=== PATIENT | male | born 1950 | race Caucasian/White ===

== ENCOUNTER 2016-05-16 20:36 | Emergency (ER) | payer MEDICARE, MEDICAID ==
[2016-05-16] MEDS ORDERED: 0.9 % SODIUM CHLORIDE 1000ML 1,000 ML IV SCH ×2 (21:00→22:45)
--- NOTE | 2016-05-16 21:08 | Emergency Department Record ---
History of Present Illness - General Chief Complaint: Dizziness Stated Complaint: DIZZY Time Seen by Provider: 05/16/16 20:55 Source: Patient Mode of Arrival: Ambulatory Limitations: No limitations - History of Present Illness Initial Comments: 65 yo male presents to ED with a CC of of generalized weakness, chills, dizziness, and non-productive cough symptoms. Patient denies fever, reports mild nausea or vomiting. Patient denies focal weakness on examination. Patient denies health problems at his baseline other than GERD and HTN. MD Complaint: Dizziness, Lightheadedness, Other (weak all over) Onset/Timin -: Days(s) Timing: Gradual onset Description: Difficulty walking History of Same: No History of Trauma: No Improves With: Nothing Worsens With: Nothing Associated Symptoms: Cough, Fever/chills, Weakness - Ines Coma Scale Eye Response: (4) Open spontaneously Motor Response: (6) Obeys commands Verbal Response: (5) Oriented [place] Total: 15 - Related Data Home Medications Medication Instructions Recorded Confirmed Last Taken Aspirin [Aspirin EC] 81 mg PO ASDIR 05/06/14 05/16/16 09/08/15 Multivitamin [Multi-Vitamin Daily] 1 tab PO DAILY 05/06/14 05/16/16 09/08/15 Ranitidine HCl [Zantac] 150 mg PO BID 05/06/14 05/16/16 09/08/15 Tamsulosin HCl [Tamsulosin HCl] 0.8 mg PO DAILY 05/06/14 05/16/16 09/08/15 Meloxicam [Meloxicam] 7.5 mg PO DAILY 09/05/15 05/16/16 09/08/15 Allergies Allergy/AdvReac Type Severity Reaction Status Date / Time morphine AdvReac Severe VOMITING Verified 09/08/15 20:47 Travel Screening - Travel/Exposure Within Last 30 Days Have you traveled within the last 30 days?: No Review of Systems Constitutional: Reports: Chills, Malaise, Weakness. Denies: Night sweats Eyes: Denies: Eye discharge, Eye pain ENT: Denies: Congestion, Ear pain, Epistaxis Respiratory: Reports: Cough. Denies: Dyspnea Cardiovascular: Denies: Chest pain, Dyspnea on exertion, Palpitations, Syncope Endocrine: Reports: Fatigue. Denies: Heat or cold intolerance, Polydipsia, Polyuria Gastrointestinal: Reports: Nausea. Denies: Abdominal pain, Constipation, Vomiting Genitourinary: Denies: Incontinence, Retention Musculoskeletal: Denies: Arthralgia, Back pain, Gout, Joint swelling Skin: Denies: Bruising, Change in color Neurological: Denies: Abnormal gait, Confusion, Headache, Seizure Psychiatric: Denies: Anxiety Hematological/Lymphatic: Denies: Anemia, Blood Clots Past Medical History - SOCIAL HISTORY Smoking Status: Former smoker Alcohol Use: None Drug Use: None - RESPIRATORY Hx Respiratory Disorders: Yes Hx COPD: Yes Hx Dyspnea: Yes - CARDIOVASCULAR Hx Cardio Disorders: Yes Hx Hypertension: Yes - NEURO Hx Neuro Disorders: No Comment:: pt exhibits some neurological deficits - GI Hx GI Disorders: Yes Hx Ulcer: Yes - Hx Genitourinary Disorders: Yes Hx Bladder Problem: Yes Hx Prostate Problems: Yes Comment:: takes flomax - ENDOCRINE Hx Endocrine Disorders: No Hx Diabetes: No Hx Thyroid Disease: No - MUSCULOSKELETAL Hx Musculoskeletal Disorders: No Comment:: rt torn rotator cuff, current cyst on spine - PSYCH Hx Psych Problems: No - HEMATOLOGY/ONCOLOGY Hx Hematology/Oncology Disorders: No Family Medical History Any Significant Family History?: Yes Hx Cancer: Father, Mother Hx Diabetes: Mother Physical Exam - General General Appearance: Alert, Oriented x3, Cooperative, Mild distress Limitations: No limitations - Head Head exam: Atraumatic, Normocephalic, Normal inspection Head exam detail: negative: Abrasion, Contusion, Judge's sign, General tenderness, Hematoma, Laceration - Eye Eye exam: Other (Glass eye left). negative: Conjunctival injection, Periorbital swelling, Periorbital tenderness, Scleral icterus - ENT Ear exam: negative: Auricular hematoma, Auricular trauma Nasal Exam: negative: Active bleeding, Discharge, Dried blood, Foreign body Mouth exam: negative: Drooling, Laceration, Muffled voice, Tongue elevation - Neck Neck exam: Normal inspection. negative: Meningismus, Tenderness - Respiratory Respiratory exam: Normal lung sounds bilaterally. negative: Rales, Respiratory distress, Rhonchi, Stridor - Cardiovascular Cardiovascular Exam: Regular rate, Normal rhythm, Normal heart sounds - GI/Abdominal GI/Abdominal exam: Soft. negative: Rebound, Rigid, Tenderness - Rectal Rectal exam: Deferred - exam: Deferred - Extremities Extremities exam: Normal inspection. negative: Calf tenderness, Pedal edema, Tenderness - Back Back exam: Denies: CVA tenderness (R), CVA tenderness (L) - Neurological Neurological exam: Alert, Normal gait, Oriented X3 - Psychiatric Psychiatric exam: Normal affect, Normal mood - Skin Skin exam: Normal color. negative: Abrasion Type of lesion: negative: abrasion Course Vital Signs 05/16/16 20:45 Temperature 98.4 F Pulse Rate [ 71 Pulse Ox Probe] Respiratory 20 Rate Blood Pressure 141/77 [Left Arm] Pulse Ox 97 - Reevaluation(s) Reevaluation #1: 05/16/16 21:13 EKG: NSR 66 Normal axis, normal intervals T wave inversion I, AVL, ST changes V4-V6 Unchanged from 05/06/16 Reevaluation #2: 05/16/16 21:36 Labs reviewed, Hgb 12.8, HCT 38, labs are otherwise grossly unremarkable for an acute process. Reevaluation #3: 05/16/16 21:58 CXR: No acute process. Reevaluation #4: 05/16/16 22:28 UA reviewed and is grossly unremarkable for an acute process. Reevaluation #5: 05/16/16 22:31 Patient reassessed, reports he is feeling better following IVFs, will infuse 2nd liter and reassess. 23:17 Patient reassessed, reports that he is feeling much better and appears stable for discharge at this time. 05/16/16 23:17 Medical Decision Making - Lab Data Result diagrams: 05/16/16 21:08 05/16/16 21:08 Disposition Disposition: Discharge Clinical Impression: Dehydration Disposition: Home, Self-Care Condition: (2) Stable Instructions: Dehydration (ED) Additional Instructions: Return to ED if your symptoms worsen or if you have any concerns. Drink plenty of fluids/rest. Follow-up with your family doctor in 3-5 days as directed. Forms: Patient Portal Access Time of Disposition: 23:00
[2016-05-16 21:18] LABS: HEMATOCRIT 38.8 % (42.0-52.0); HEMOGLOBIN 12.8 gm/dl (14.0-18.0); MEAN PLATELET VOLUME 10.4 fl (7.4-10.4); PLATELET COUNT 214 K/uL (130-400); RED BLOOD COUNT 4.85 M/uL (4.40-5.70); RED CELL DISTRIBUTION WIDTH 13.6 % (11.5-14.5); WHITE BLOOD COUNT W/O DIFF 6.5 K/uL (4.2-12.2)
[2016-05-16 21:21] LABS: MEAN CORPUSCULAR HEMOGLOBIN 26.3 pg (27-33)
[2016-05-16 21:30] LABS: ALB/GLOB RATIO 1.5 (1.1-1.8); ALBUMIN 4.7 gm/dL (3.5-5.0); ALKALINE PHOSPHATASE 56 U/L (38-126); ALT/SGPT 50 U/L (21-72); ANION GAP 9.1 (7-16); AST/SGOT 30 U/L (17-59); BILIRUBIN,TOTAL 0.81 mg/dL (0.2-1.3); BLOOD UREA NITROGEN 15 mg/dL (9-20); CARBON DIOXIDE 24.9 mmol/L (22-30); CREATININE 0.8 mg/dL (0.66-1.25); EST GLOMERULAR FILTRATION RATE > 60 ml/min; GLUCOSE,RANDOM 129 mg/dL (70-110); TOTAL PROTEIN 7.9 gm/dL (6.3-8.2)
[2016-05-16 21:31] LABS: INFLUENZA A NEGATIVE (NEGATIVE); INFLUENZA B NEGATIVE (NEGATIVE)
[2016-05-16 22:19] LABS: URINE APPEARANCE CLEAR; URINE BILIRUBIN NEGATIVE (NEGATIVE); URINE BLOOD SMALL (NEGATIVE); URINE COLOR YELLOW; URINE GLUCOSE (UA) NEGATIVE (NEGATIVE); URINE KETONE NEGATIVE (NEGATIVE); URINE LEUKOCYTE ESTERASE NEGATIVE (NEGATIVE); URINE NITRITE NEGATIVE (NEGATIVE); URINE PROTEIN NEGATIVE (NEGATIVE); URINE UROBILINOGEN 0.2 E.U./dL (0.20 - 1.00)
[2016-05-16 22:21] LABS: URINE BACTERIA NONE SEEN; URINE EPITHELIAL CELLS 0 - 2 (FEW); URINE RBC 0 - 2 (NONE SEEN); URINE WBC 0 - 2 (0-2/hpf)
--- NOTE | 2016-05-20 11:24 | RADIOLOGY REPORT ---
EXAM: CHEST, TWO VIEWS HISTORY: PATIENT STATES THAT HE HAS BEEN FEELING WEAK. COUGH. NAUSEA. CHILLS. TECHNIQUE: Two views of the chest were provided along with the comparison study dated 05/06/14. FINDINGS: The cardiac silhouette is magnified. The rocío appear unremarkable. There is no radiographic evidence of a focal infiltrate, pleural effusion, or pneumothorax. Chronic interstitial changes are identified bilaterally. IMPRESSION: STABLE RADIOGRAPHIC APPEARANCE OF THE CHEST WITH RESPECT TO THE PRIOR EXAMINATION. JOB NUMBER: [id number] [facility]
== END 2016-05-16 23:15 | disposition home or self-care (01) ==
LOC: ER 20:36
DX: E86.0 Dehydration (principal); R42 Dizziness and giddiness; R26.2 Difficulty in walking, not elsewhere classified; I10 Essential (primary) hypertension; Z87.891 Personal history of nicotine dependence
CPT/HCPCS: 71020; 80053; 81001; 85027; 86308; 87400; 93005; 93010; 99284; J7030

== ENCOUNTER 2016-07-03 19:29 | Emergency (ER) | payer MEDICARE, MEDICAID ==
[2016-07-03] MEDS ORDERED: 0.9 % SODIUM CHLORIDE 1,000 ML BAG IV ONE (19:55)
--- NOTE | 2016-07-03 19:59 | Emergency Department Record ---
History of Present Illness - General Chief complaint: Nausea, Vomiting, Diarrhea Stated complaint: DIARRHEA Time Seen by Provider: 07/03/16 19:45 Source: Patient Mode of Arrival: Ambulatory Limitations: No limitations - History of Present Illness Initial comments: pt has had 1 bout of diarrhea every other night for the last week. he is having none tonight. he has nausea and cramping with it. it happens right after he eats no matter what he eats. MD complaint: Abdominal pain, Diarrhea, Nausea Onset/Timin -: Week(s) Associated Abdominal Pain: Yes Location: LLQ, RLQ Radiation: None Severity: Mild Quality: Cramping Consistency: Intermittent Improves with: Bowel movement Worsens with: Eating Associated Symptoms: Denies other symptoms - Related Data Home Medications Medication Instructions Recorded Confirmed Last Taken Aspirin [Aspirin EC] 81 mg PO ASDIR 05/06/14 07/03/16 09/08/15 Multivitamin [Multi-Vitamin Daily] 1 tab PO DAILY 05/06/14 07/03/16 09/08/15 Ranitidine HCl [Zantac] 150 mg PO BID 05/06/14 07/03/16 07/03/16 Tamsulosin HCl [Tamsulosin HCl] 0.4 mg PO DAILY 05/06/14 07/03/16 09/08/15 Acetaminophen [Tylenol Extra 500 mg PO BID 07/03/16 07/03/16 07/03/16 Strength] Gemfibrozil [Lopid] 600 mg PO DAILY 07/03/16 07/03/16 07/03/16 [place]win-3 Fatty Acids/Fish Oil [Fish 1 each PO DAILY 07/03/16 07/03/16 07/03/16 Oil 1,000 mg Capsule] Previous Rx's Medication Instructions Recorded Loperamide HCl [Immodium] 2 mg PO Q4H #10 capsule 07/03/16 Allergies Allergy/AdvReac Type Severity Reaction Status Date / Time morphine AdvReac Severe VOMITING Verified 09/08/15 20:47 Travel Screening - Travel/Exposure Within Last 30 Days Have you traveled within the last 30 days?: No Review of Systems Reviewed: No additional complaints except as noted below Constitutional: Reports: As per HPI. Denies: Chills, Fever, Malaise, Night sweats, Weakness, Weight change Eyes: Reports: As per HPI. Denies: Eye discharge, Eye pain, Photophobia, Vision change ENT: Reports: As per HPI. Denies: Congestion, Dental pain, Ear pain, Epistaxis , Hearing loss, Throat pain Respiratory: Reports: As per HPI. Denies: Cough, Dyspnea, Hemoptysis, Stridor, Wheezes Cardiovascular: Reports: As per HPI. Denies: Arrhythmia, Chest pain, Dyspnea on exertion, Edema, Murmurs, Orthopnea, Palpitations, Paroxysmal nocturnal dyspnea, Rheumatic Fever, Syncope Endocrine: Reports: As per HPI. Denies: Fatigue, Heat or cold intolerance, Polydipsia, Polyuria Gastrointestinal: Reports: As per HPI. Denies: Abdominal pain, Constipation, Diarrhea, Hematemesis, Hematochezia, Melena, Nausea, Vomiting Genitourinary: Reports: As per HPI. Denies: Dysuria, Frequency, Hematuria, Incontinence, Retention, Testicular pain, Testicular mass, Urgency Musculoskeletal: Reports: As per HPI. Denies: Arthralgia, Back pain, Gout, Joint swelling, Myalgia, Neck pain Skin: Reports: As per HPI. Denies: Bruising, Change in color, Change in hair/ nails, Lesions, Pruritus, Rash Neurological: Reports: As per HPI. Denies: Abnormal gait, Confusion, Headache, Numbness, Paresthesias, Seizure, Tingling, Tremors, Vertigo, Weakness Psychiatric: Reports: As per HPI. Denies: Anxiety, Auditory hallucinations, Depression, Homicidal thoughts, Suicidal thoughts, Visual hallucinations Hematological/Lymphatic: Reports: As per HPI. Denies: Anemia, Blood Clots, Easy bleeding, Easy bruising, Swollen glands Past Medical History - SOCIAL HISTORY Smoking Status: Former smoker Alcohol Use: None Drug Use: None - RESPIRATORY Hx Respiratory Disorders: Yes Hx COPD: Yes Hx Dyspnea: Yes - CARDIOVASCULAR Hx Cardio Disorders: Yes Hx Hypertension: Yes - NEURO Hx Neuro Disorders: No Comment:: pt exhibits some neurological deficits - GI Hx GI Disorders: Yes Hx Ulcer: Yes - Hx Genitourinary Disorders: Yes Hx Bladder Problem: Yes Hx Prostate Problems: Yes Comment:: takes flomax - ENDOCRINE Hx Endocrine Disorders: No Hx Diabetes: No Hx Thyroid Disease: No - MUSCULOSKELETAL Hx Musculoskeletal Disorders: No Comment:: rt torn rotator cuff, current cyst on spine - PSYCH Hx Psych Problems: No - HEMATOLOGY/ONCOLOGY Hx Hematology/Oncology Disorders: No Family Medical History Any Significant Family History?: Yes Hx Cancer: Father, Mother Hx Diabetes: Mother Physical Exam - General General Appearance: Alert, Oriented x3, Cooperative, No acute distress - Head Head exam: Normal inspection - Eye Eye exam: Normal appearance, PERRL, EOMI Pupils: Normal accommodation - ENT ENT exam: Normal exam, Mucous membranes moist, Normal external ear exam, Normal orophraynx Ear exam: Normal external inspection. negative: External canal tenderness Nasal Exam: Normal inspection. negative: Discharge, Sinus tenderness Mouth exam: Normal external inspection, Tongue normal Teeth exam: Normal inspection. negative: Dental caries Throat exam: Normal inspection. negative: Tonsillar erythema, Tonsillar exudate - Neck Neck exam: Normal inspection, Full ROM. negative: Tenderness - Respiratory Respiratory exam: Normal lung sounds bilaterally. negative: Respiratory distress - Cardiovascular Cardiovascular Exam: Regular rate, Normal rhythm, Normal heart sounds - GI/Abdominal GI/Abdominal exam: Soft, Normal bowel sounds. negative: Tenderness - Rectal Rectal exam: Deferred - exam: Deferred - Extremities Extremities exam: Normal inspection, Full ROM, Normal capillary refill. negative: Tenderness - Back Back exam: Reports: Normal inspection, Full ROM. Denies: Muscle spasm, Rash noted, Tenderness - Neurological Neurological exam: Alert, CN II-XII intact, Normal gait, Oriented X3 - Psychiatric Psychiatric exam: Normal affect, Normal mood - Skin Skin exam: Dry, Intact, Normal color, Warm Course Vital Signs 07/03/16 19:36 Temperature 97.7 F Pulse Rate 66 Respiratory 22 Rate Blood Pressure 159/82 Pulse Ox 96 Medical Decision Making - Lab Data Result diagrams: 07/03/16 20:10 07/03/16 20:10 Disposition Disposition: Discharge Clinical Impression: Diarrhea Qualifiers: Diarrhea type: unspecified type Qualified Code(s): R19.7 - Diarrhea, unspecified Disposition: Home, Self-Care Condition: (1) Good Instructions: Acute Diarrhea (ED) Additional Instructions: follow up with family doctor. return sooner if worse. push fluids Prescriptions: Loperamide HCl [Immodium] 2 mg PO Q4H #10 capsule Forms: Patient Portal Access
[2016-07-03 20:16] LABS: BASO % 1.1 % (0-6); EOS % 4.9 % (0-6); HEMATOCRIT 38.4 % (42.0-52.0); HEMOGLOBIN 12.6 gm/dl (14.0-18.0); LYMPH % 25.3 % (16-45); MEAN CELL VOLUME 79.8 fl (81-97); MEAN CORPUSCULAR HGB CONC 32.8 g/dl (32-36); MEAN PLATELET VOLUME 10.6 fl (7.4-10.4); MONO % 8.7 % (0-9); PLATELET COUNT 256 K/uL (130-400); RED BLOOD COUNT 4.81 M/uL (4.40-5.70); RED CELL DISTRIBUTION WIDTH 13.5 % (11.5-14.5); WHITE BLOOD COUNT W/O DIFF 6.1 K/uL (4.2-12.2)
[2016-07-03 20:17] LABS: MEAN CORPUSCULAR HEMOGLOBIN 26.1 pg (27-33)
[2016-07-03 20:30] LABS: ALB/GLOB RATIO 1.6 (1.1-1.8); ALBUMIN 4.7 gm/dL (3.5-5.0); ALKALINE PHOSPHATASE 58 U/L (38-126); ALT/SGPT 42 U/L (21-72); ANION GAP 10.5 (7-16); AST/SGOT 28 U/L (17-59); BILIRUBIN,TOTAL 0.67 mg/dL (0.2-1.3); BLOOD UREA NITROGEN 20 mg/dL (9-20); CARBON DIOXIDE 24.5 mmol/L (22-30); CREATININE 0.7 mg/dL (0.66-1.25); EST GLOMERULAR FILTRATION RATE > 60 ml/min; GLUCOSE,RANDOM 110 mg/dL (70-110); LIPASE 56 U/L (23-300); TOTAL PROTEIN 7.6 gm/dL (6.3-8.2)
[2016-07-03 20:52] LABS: URINE APPEARANCE CLEAR; URINE BILIRUBIN NEGATIVE (NEGATIVE); URINE BLOOD SMALL (NEGATIVE); URINE COLOR YELLOW; URINE GLUCOSE (UA) NEGATIVE (NEGATIVE); URINE KETONE NEGATIVE (NEGATIVE); URINE LEUKOCYTE ESTERASE TRACE (NEGATIVE); URINE NITRITE NEGATIVE (NEGATIVE); URINE PROTEIN NEGATIVE (NEGATIVE); URINE UROBILINOGEN 0.2 E.U./dL (0.20 - 1.00)
[2016-07-03 21:04] LABS: URINE BACTERIA FEW; URINE EPITHELIAL CELLS 0 - 2 (FEW); URINE MUCUS LIGHT
== END 2016-07-03 21:46 | disposition home or self-care (01) ==
LOC: ER 19:29
DX: R11.2 Nausea with vomiting, unspecified (principal); R19.7 Diarrhea, unspecified; R10.84 Generalized abdominal pain
CPT/HCPCS: 80053; 81001; 83690; 85025; 99284; J7030

== ENCOUNTER 2017-06-16 19:28 | Emergency (ER) | payer MEDICARE, MEDICAID ==
--- NOTE | 2017-06-16 21:34 | Emergency Department Record ---
History of Present Illness - General Chief complaint: Extremity Problem Stated complaint: RT LOWER LEG PAIN Time Seen by Provider: 06/16/17 20:02 Source: Patient Mode of Arrival: Ambulatory Limitations: No limitations - History of Present Illness Initial comments: pts knee gave out today. he wears a brace Complaint: Extremity pain, Joint pain Onset/Timin -: Days(s) Location: Right, Knee History of Same: Yes Radiation: None Improves with: Immobilization Worsens with: Walking, Weight bearing Associated Symptoms: Denies other symptoms - Related Data Previous Rx's Medication Instructions Recorded Loperamide HCl [Immodium] 2 mg PO Q4H #10 capsule 07/03/16 Allergies Allergy/AdvReac Type Severity Reaction Status Date / Time morphine AdvReac Severe VOMITING Verified 09/08/15 20:47 Travel Screening - Travel/Exposure Within Last 30 Days Have you traveled within the last 30 days?: No - Travel Symptoms Symptom Screening: None Review of Systems Reviewed: No additional complaints except as noted below Constitutional: Reports: As per HPI. Denies: Chills, Fever, Malaise, Night sweats, Weakness, Weight change Eyes: Reports: As per HPI. Denies: Eye discharge, Eye pain, Photophobia, Vision change ENT: Reports: As per HPI. Denies: Congestion, Dental pain, Ear pain, Epistaxis , Hearing loss, Throat pain Respiratory: Reports: As per HPI. Denies: Cough, Dyspnea, Hemoptysis, Stridor, Wheezes Cardiovascular: Reports: As per HPI. Denies: Arrhythmia, Chest pain, Dyspnea on exertion, Edema, Murmurs, Orthopnea, Palpitations, Paroxysmal nocturnal dyspnea, Rheumatic Fever, Syncope Endocrine: Reports: As per HPI. Denies: Fatigue, Heat or cold intolerance, Polydipsia, Polyuria Gastrointestinal: Reports: As per HPI. Denies: Abdominal pain, Constipation, Diarrhea, Hematemesis, Hematochezia, Melena, Nausea, Vomiting Genitourinary: Reports: As per HPI. Denies: Dysuria, Frequency, Hematuria, Incontinence, Retention, Testicular pain, Testicular mass, Urgency Musculoskeletal: Reports: As per HPI. Denies: Arthralgia, Back pain, Gout, Joint swelling, Myalgia, Neck pain Skin: Reports: As per HPI. Denies: Bruising, Change in color, Change in hair/ nails, Lesions, Pruritus, Rash Neurological: Reports: As per HPI. Denies: Abnormal gait, Confusion, Headache, Numbness, Paresthesias, Seizure, Tingling, Tremors, Vertigo, Weakness Psychiatric: Reports: As per HPI. Denies: Anxiety, Auditory hallucinations, Depression, Homicidal thoughts, Suicidal thoughts, Visual hallucinations Hematological/Lymphatic: Reports: As per HPI. Denies: Anemia, Blood Clots, Easy bleeding, Easy bruising, Swollen glands Past Medical History - SOCIAL HISTORY Smoking Status: Former smoker Alcohol Use: None Drug Use: None - RESPIRATORY Hx Respiratory Disorders: Yes Hx COPD: Yes Hx Dyspnea: Yes - CARDIOVASCULAR Hx Cardio Disorders: Yes Hx Hypertension: Yes - NEURO Hx Neuro Disorders: No Comment:: pt exhibits some neurological deficits - GI Hx GI Disorders: Yes Hx Ulcer: Yes - Hx Genitourinary Disorders: Yes Hx Bladder Problem: Yes Hx Prostate Problems: Yes Comment:: takes flomax - ENDOCRINE Hx Endocrine Disorders: No Hx Diabetes: No Hx Thyroid Disease: No - MUSCULOSKELETAL Hx Musculoskeletal Disorders: No Comment:: rt torn rotator cuff, current cyst on spine - PSYCH Hx Psych Problems: No - HEMATOLOGY/ONCOLOGY Hx Hematology/Oncology Disorders: No Family Medical History Any Significant Family History?: Yes Hx Cancer: Father, Mother Hx Diabetes: Mother Physical Exam - General General Appearance: Alert, Oriented x3, Cooperative, Mild distress - Head Head exam: Normal inspection - Eye Eye exam: Normal appearance, PERRL, EOMI Pupils: Normal accommodation - ENT ENT exam: Normal exam, Mucous membranes moist, Normal external ear exam, Normal orophraynx Ear exam: Normal external inspection. negative: External canal tenderness Nasal Exam: Normal inspection. negative: Discharge, Sinus tenderness Mouth exam: Normal external inspection, Tongue normal Teeth exam: Normal inspection. negative: Dental caries Throat exam: Normal inspection. negative: Tonsillar erythema, Tonsillar exudate - Neck Neck exam: Normal inspection, Full ROM. negative: Tenderness - Respiratory Respiratory exam: Normal lung sounds bilaterally. negative: Respiratory distress - Cardiovascular Cardiovascular Exam: Regular rate, Normal rhythm, Normal heart sounds - GI/Abdominal GI/Abdominal exam: Soft, Normal bowel sounds. negative: Tenderness - Rectal Rectal exam: Deferred - exam: Deferred - Extremities Extremities exam: Full ROM, Normal capillary refill, Tenderness Image of Full Body: 1 - tender - Back Back exam: Reports: Normal inspection, Full ROM. Denies: Muscle spasm, Rash noted, Tenderness - Neurological Neurological exam: Alert, CN II-XII intact, Normal gait, Oriented X3 - Psychiatric Psychiatric exam: Normal affect, Normal mood - Skin Skin exam: Dry, Intact, Normal color, Warm Course Vital Signs 06/16/17 06/16/17 06/16/17 19:42 19:46 20:53 Temperature 97.6 F 97.6 F Pulse Rate [ 64 55 L Pulse Ox Probe] Respiratory 20 20 20 Rate Blood Pressure 150/51 117/56 [Left Arm] Pulse Ox 96 96 96 Disposition Disposition: Discharge Clinical Impression: Knee instability Qualifiers: Laterality: left Qualified Code(s): M25.362 - Other instability, left knee Disposition: Home, Self-Care Condition: (1) Good Instructions: Patellar Tendinitis (ED) Additional Instructions: follow up with dr pressley. return sooner if worse. 1/2 norco for pain if needed Quality - Quality Measures Quality Measures: N/A - Blood Pressure Screening Does Patient Have Any of the Following: No Blood Pressure Classification: Normal BP Reading Systolic Measurement: 117 Diastolic Measurement: 56 Screening for High Blood Pressure: < Normal BP, F/U Not Required > [[id number]]
[2017-06-16] MEDS: HYDROCODONE/APAP 5/325MG TABLET PO ONE (21:39)
--- NOTE | 2017-06-17 09:20 | RADIOLOGY REPORT ---
EXAM: RIGHT KNEE HISTORY: KNEE PAIN. TECHNIQUE: Four views of the right knee were obtained. Comparison: None. Encounter: Initial. FINDINGS: Negative for an acute fracture or dislocation. Osteopenia with degenerative changes. Well corticated ossific density near the anterior tibial tubercle may relate to chronic patellar tendinopathy. IMPRESSION: OSTEOPENIA WITH NO ACUTE OSSEOUS ABNORMALITY. JOB NUMBER: [id number] MTDD
--- NOTE | 2017-06-17 09:22 | RADIOLOGY REPORT ---
EXAM: RIGHT LOWER LEG HISTORY: PAIN. TECHNIQUE: Two views of the right lower leg were obtained. Comparison: None. Encounter: Initial. FINDINGS: Osteopenia. Negative for fracture or dislocation. The soft tissues are unremarkable. IMPRESSION: NO ACUTE OSSEOUS ABNORMALITY. JOB NUMBER: [id number] MTDD
== END 2017-06-16 21:42 | disposition home or self-care (01) ==
LOC: ER 19:28
DX: M25.362 Other instability, left knee (principal); M25.561 Pain in right knee; J44.9 Chronic obstructive pulmonary disease, unspecified; I10 Essential (primary) hypertension; Z87.891 Personal history of nicotine dependence
CPT/HCPCS: 99283

== ENCOUNTER 2017-08-23 16:14 | Emergency (ER) | payer MEDICARE, MEDICAID ==
--- NOTE | 2017-08-23 16:40 | Emergency Department Record ---
History of Present Illness - General Chief Complaint: Ankle/Foot Injury Stated Complaint: INJURY TO LT LEG Time Seen by Provider: 08/23/17 16:34 Source: Patient Mode of Arrival: Wheelchair Limitations: No limitations - History of Present Illness Initial Comments: The patient is here due to a L ankle injury. He stepped in a hole at home and twisted the ankle. He heard a pop and has been unable to walk on it due to pain. The patient was offered IV pain medicines but declined. MD Complaint: Ankle injury Onset/Timin -: Minutes(s) Place: Home - Related Data Home Medications Medication Instructions Recorded Confirmed Last Taken Ferrous Sulfate 325 mg PO DAILY 08/23/17 08/23/17 08/23/17 Metformin HCl 500 mg PO DAILY 08/23/17 08/23/17 08/23/17 Valsartan 40 mg PO DAILY 08/23/17 08/23/17 08/23/17 Previous Rx's Medication Instructions Recorded Loperamide HCl [Immodium] 2 mg PO Q4H #10 capsule 07/03/16 Allergies Allergy/AdvReac Type Severity Reaction Status Date / Time morphine AdvReac Severe VOMITING Verified 09/08/15 20:47 Travel Screening - Travel/Exposure Within Last 30 Days Have you traveled within the last 30 days?: No - Travel/Exposure Within Last Year Have you traveled outside the [place] in the last year?: No - Additonal Travel Details Have you been exposed to anyone with a communicable illness?: No - Travel Symptoms Symptom Screening: None Review of Systems Constitutional: Denies: Chills, Fever Past Medical History - SOCIAL HISTORY Smoking Status: Former smoker Alcohol Use: None Drug Use: None - RESPIRATORY Hx Respiratory Disorders: Yes Hx COPD: Yes Hx Dyspnea: Yes - CARDIOVASCULAR Hx Cardio Disorders: Yes Hx Hypertension: Yes - NEURO Hx Neuro Disorders: No Comment:: pt exhibits some neurological deficits - GI Hx GI Disorders: Yes Hx Ulcer: Yes - Hx Genitourinary Disorders: Yes Hx Bladder Problem: Yes Hx Prostate Problems: Yes Comment:: takes flomax - ENDOCRINE Hx Endocrine Disorders: No Hx Diabetes: No Hx Thyroid Disease: No - MUSCULOSKELETAL Hx Musculoskeletal Disorders: No Comment:: rt torn rotator cuff, current cyst on spine - PSYCH Hx Psych Problems: No - HEMATOLOGY/ONCOLOGY Hx Hematology/Oncology Disorders: No Family Medical History Any Significant Family History?: Yes Hx Cancer: Father, Mother Hx Diabetes: Mother Physical Exam - General General Appearance: Alert, Oriented x3, Cooperative, No acute distress - Head Head exam: Atraumatic, Normocephalic, Normal inspection - Eye Eye exam: Normal appearance, PERRL - Extremities Extremities exam: Tenderness (There is significant tenderness to the distal tibial area. There is no proximal fibular tenderness.), Other (The L DP pulse is strong. ). negative: Normal inspection, Full ROM Course Vital Signs 08/23/17 16:28 Temperature 98.2 F Pulse Rate 72 Respiratory 17 Rate Blood Pressure 133/68 Pulse Ox 95 - Reevaluation(s) Reevaluation #1: The patient is doing very well at this time. I did discuss the tibial fx with him and the need for surgery. The patient would like to go to [facility]. I then did discuss the case with Dr. Bardales in the ER at [facility] and she does accept the transfer. 08/23/17 17:11 Reevaluation #2: The patient again was offered IV pain medicines but refused. 08/23/17 17:38 Medical Decision Making - Data Complexity MDM Data: X-Ray Ordered and/or Reviewed - Lab Data Result diagrams: 08/23/17 17:40 08/23/17 17:40 - Radiology Data Radiology results: Report reviewed (L ankle: distal tibial diaphiseal spiral fx with minimal displacement.) Disposition Disposition: Transfer Clinical Impression: Closed tibial fracture Qualifiers: Encounter type: initial encounter Tibia location: shaft Fracture morphology: spiral Fracture alignment: displaced Laterality: left Qualified Code(s): S82.242A - Displaced spiral fracture of shaft of left tibia, initial encounter for closed fracture Disposition: Acute Care Hospital Transfer Transfer To: [facility] ER Reason For Transfer: Orthopedics Accepting Physician: Jeffy. Time Discussed w/Accepting Physician: 17:14 Condition: (2) Stable Forms: Patient Portal Access Time of Disposition: 17:14 Quality - Quality Measures Quality Measures: N/A - Blood Pressure Screening View Details: Yes Does Patient Have Any of the Following: No Blood Pressure Classification: Pre-Hypertensive BP Reading Systolic Measurement: 133 Diastolic Measurement: 68 Screening for High Blood Pressure: < Pre-Hypertensive BP, F/U Documented > [ G8950] Pre-Hypertensive Follow-up Interventions: Referral to alternative/primary care provider.
[2017-08-23] MEDS ORDERED: ONDANSETRON HCL IV 4 MG/2 ML VIAL IVP ONE (17:35)
[2017-08-23] MEDS ORDERED: HYDROMORPHONE HCL 2 MG/ML VIAL IVP ONE (17:35)
[2017-08-23 17:54] LABS: BASO % 0.5 % (0-6); EOS % 1.7 % (0-6); GRAN % 71.9 % (47-80); HEMATOCRIT 39.5 % (42.0-52.0); HEMOGLOBIN 12.6 gm/dl (14.0-18.0); LYMPH % 19.2 % (16-45); MEAN CORPUSCULAR HEMOGLOBIN 26.1 pg (27-33); MEAN CORPUSCULAR HGB CONC 31.9 g/dl (32-36); MEAN PLATELET VOLUME 10.5 fl (7.4-10.4); MONO % 6.7 % (0-9); PLATELET COUNT 271 K/uL (130-400); RED BLOOD COUNT 4.82 M/uL (4.40-5.70); RED CELL DISTRIBUTION WIDTH 13.8 % (11.5-14.5); WHITE BLOOD COUNT W/O DIFF 6.6 K/uL (4.2-12.2)
[2017-08-23 18:08] LABS: BLOOD UREA NITROGEN 28 mg/dL (8-23); CREATININE 0.7 mg/dL (0.7-1.2); EST GLOMERULAR FILTRATION RATE > 60 mL/min; PARTIAL THROMBOPLASTIN TIME 23.6 SECONDS (24.5-39.1); PROTHROMBIN TIME (PATIENT) 10.4 SECONDS (9.5-12.1)
[2017-08-23 18:11] LABS: GLUCOSE,RANDOM 148 mg/dL (74-109)
--- NOTE | 2017-08-26 12:44 | RADIOLOGY REPORT ---
EXAM: LEFT ANKLE, THREE VIEWS HISTORY: ACUTE PAIN POST INJURY. TECHNIQUE: Three views of the left ankle were obtained. Comparison: Three views of the left ankle dated 04/06/15. FINDINGS: There is normal bone mineralization. There is a spiral type fracture of the distal tibial diaphysis with minimal posterolateral displacement of the distal fracture fragment by approximately 2-3 mm. No other fracture is seen nor is there dislocation. The ankle mortise joint is symmetric. There is soft tissue swelling at the fracture site. IMPRESSION: MINIMALLY DISPLACED SPIRAL TYPE FRACTURE OF THE DISTAL TIBIAL DIAPHYSIS WITH ASSOCIATED SOFT TISSUE SWELLING. JOB NUMBER: [id number] [facility]
== END 2017-08-23 18:20 | disposition short-term general hospital (02) ==
LOC: ER 16:14
DX: S82.242A Displaced spiral fracture of shaft of left tibia, initial encounter for closed fracture (principal); X50.1XXA Overexertion from prolonged static or awkward postures, initial encounter; Y92.007 Garden or yard of unspecified non-institutional (private) residence as the place of occurrence of the external cause; I10 Essential (primary) hypertension; J44.9 Chronic obstructive pulmonary disease, unspecified; Z87.891 Personal history of nicotine dependence
CPT/HCPCS: 80048; 85025; 85610; 85730; 96374; 96375; 99285

== ENCOUNTER 2017-09-13 15:00 | Emergency (ER) | payer MEDICARE, MEDICAID ==
[2017-09-13 15:22] LABS: URINE APPEARANCE CLEAR; URINE BILIRUBIN NEGATIVE (NEGATIVE); URINE BLOOD TRACE-I (NEGATIVE); URINE COLOR YELLOW; URINE GLUCOSE (UA) NEGATIVE (NEGATIVE); URINE KETONE NEGATIVE (NEGATIVE); URINE LEUKOCYTE ESTERASE NEGATIVE (NEGATIVE); URINE NITRITE NEGATIVE (NEGATIVE); URINE PROTEIN NEGATIVE (NEGATIVE); URINE UROBILINOGEN 0.2 E.U./dL (0.20 - 1.00)
--- NOTE | 2017-09-13 15:27 | Emergency Department Record ---
History of Present Illness - General Chief complaint: Male Urogenital Problem Stated complaint: URINATING ALOT Time Seen by Provider: 09/13/17 15:12 Source: Patient Mode of Arrival: Wheelchair Limitations: No limitations - History of Present Illness Initial comments: 66 yo male presents with urinary frequency. The onset was today. No retention or pain. No hematuria. No history that he knows of of prostate or urologic disease. He states he has recently started new medications. No back pain. No changes in the bowel movements. No fever. He otherwise feels well. MD Complaint: Dysuria Onset/Timin -: Days(s) Improves with: None Worsens with: None Reports: Denies other symptoms - Related Data Sexually active: No Home Medications Medication Instructions Recorded Confirmed Last Taken Apixaban [Eliquis] 2.5 mg PO DAILY 09/13/17 09/13/17 09/13/17 Previous Rx's Medication Instructions Recorded Loperamide HCl [Immodium] 2 mg PO Q4H #10 capsule 07/03/16 Allergies Allergy/AdvReac Type Severity Reaction Status Date / Time morphine AdvReac Severe VOMITING Verified 09/13/17 15:13 Travel Screening - Travel/Exposure Within Last 30 Days Have you traveled within the last 30 days?: No - Travel/Exposure Within Last Year Have you traveled outside the [place] in the last year?: No - Additonal Travel Details Have you been exposed to anyone with a communicable illness?: No - Travel Symptoms Symptom Screening: None Review of Systems Constitutional: Denies: Chills, Fever, Malaise, Weakness Eyes: Denies: Eye discharge ENT: Denies: Congestion, Throat pain Respiratory: Denies: Cough, Dyspnea, Hemoptysis, Wheezes Cardiovascular: Denies: Chest pain Endocrine: Denies: Fatigue Gastrointestinal: Denies: Abdominal pain, Diarrhea, Nausea, Vomiting Genitourinary: Reports: Frequency. Denies: Discharge, Dysuria, Hematuria, Incontinence, Retention, Urgency Musculoskeletal: Reports: Arthralgia (Recent ankle fracture, healing well without pain). Denies: Back pain, Myalgia Skin: Denies: Bruising, Change in color Neurological: Denies: Headache, Numbness, Weakness Psychiatric: Reports: Visual hallucinations. Denies: Anxiety Hematological/Lymphatic: Denies: Blood Clots, Easy bleeding, Easy bruising Past Medical History - SOCIAL HISTORY Smoking Status: Former smoker Alcohol Use: None Drug Use: None - RESPIRATORY Hx Respiratory Disorders: Yes Hx COPD: Yes Hx Dyspnea: Yes - CARDIOVASCULAR Hx Cardio Disorders: Yes Hx Hypertension: Yes - NEURO Hx Neuro Disorders: No Comment:: pt exhibits some neurological deficits - GI Hx GI Disorders: Yes Hx Ulcer: Yes - Hx Genitourinary Disorders: Yes Hx Bladder Problem: Yes Hx Prostate Problems: Yes Comment:: takes flomax - ENDOCRINE Hx Endocrine Disorders: No Hx Diabetes: No Hx Thyroid Disease: No - MUSCULOSKELETAL Hx Musculoskeletal Disorders: No Comment:: rt torn rotator cuff, current cyst on spine - PSYCH Hx Psych Problems: No - HEMATOLOGY/ONCOLOGY Hx Hematology/Oncology Disorders: No Family Medical History Any Significant Family History?: Yes Hx Cancer: Father, Mother Hx Diabetes: Mother Physical Exam - General General Appearance: Alert, Oriented x3, Cooperative, No acute distress Limitations: No limitations - Head Head exam: Atraumatic, Normal inspection - Eye Eye exam: Normal appearance - ENT ENT exam: Normal exam Ear exam: Normal external inspection Nasal Exam: Normal inspection Mouth exam: Normal external inspection - Neck Neck exam: Normal inspection - Respiratory Respiratory exam: Normal lung sounds bilaterally. negative: Respiratory distress - Cardiovascular Cardiovascular Exam: Regular rate, Normal rhythm, Normal heart sounds - GI/Abdominal GI/Abdominal exam: Soft. negative: Distended, Guarding, Rebound, Rigid, Tenderness - Rectal Rectal exam: Deferred - exam: Circumcision, Normal inspection. negative: Scrotal swelling - Extremities Extremities exam: Normal inspection - Back Back exam: Denies: CVA tenderness (R), CVA tenderness (L) - Neurological Neurological exam: Alert, Oriented X3 - Psychiatric Psychiatric exam: Normal affect, Normal mood - Skin Skin exam: Dry, Intact, Normal color, Warm Course Vital Signs 09/13/17 15:15 Temperature 98.4 F Pulse Rate 82 Respiratory 16 Rate Blood Pressure 126/80 Pulse Ox 98 - Reevaluation(s) Reevaluation #1: Vitals reviewed and are normal 09/13/17 15:35 Bladder scan was minimal around 50 ml The UA is negative for any acute findings Accu check is 167 His examination is normal No pain or tenderness Normal examination We discussed close follow up and reasons to return for a recheck of the symptoms that started today 09/13/17 15:37 Disposition Disposition: Discharge Clinical Impression: Urinary frequency Disposition: Home, Self-Care Condition: (1) Good Instructions: Dysuria (ED) Additional Instructions: Call your doctor to recheck your urine this week If the symptoms continue return to the ED Your urine was normal today and your bladder was empty in the ER Forms: Patient Portal Access Time of Disposition: 15:38 Quality - Quality Measures Quality Measures: N/A - Blood Pressure Screening Does Patient Have Any of the Following: Active Dx of HTN Blood Pressure Classification: Pre-Hypertensive BP Reading Systolic Measurement: 126 Diastolic Measurement: 80 Screening for High Blood Pressure: Patient Exclusion, Hx of HTN [G9744]
[2017-09-13 15:30] LABS: URINE BACTERIA NONE SEEN; URINE EPITHELIAL CELLS NONE SEEN (FEW); URINE RBC 0 - 2 (NONE SEEN); URINE WBC NONE SEEN (0-2/hpf)
== END 2017-09-13 15:55 | disposition home or self-care (01) ==
LOC: ER 15:00
DX: R35.0 Frequency of micturition (principal); R30.0 Dysuria; J44.9 Chronic obstructive pulmonary disease, unspecified; I10 Essential (primary) hypertension; Z87.891 Personal history of nicotine dependence
CPT/HCPCS: 36416; 81001; 82948; 99283

== ENCOUNTER 2017-09-23 23:20 | Emergency (ER) | payer MEDICARE, MEDICAID ==
--- NOTE | 2017-09-23 23:37 | Emergency Department Record ---
History of Present Illness - General Chief Complaint: General Stated Complaint: WET CASTE Time Seen by Provider: 09/23/17 23:22 Source: Patient Mode of Arrival: Ambulatory Limitations: No limitations - History of Present Illness Initial comments: The patient is here due to getting his L lower leg cast wet today and now would like it changes. He did have surgery 4 weeks ago at [facility] by Dr. Wiley. He denies any other problems or issues. Onset/Timin -: Days(s) - Related Data Previous Rx's Medication Instructions Recorded Loperamide HCl [Immodium] 2 mg PO Q4H #10 capsule 07/03/16 Allergies Allergy/AdvReac Type Severity Reaction Status Date / Time morphine AdvReac Severe VOMITING Verified 09/13/17 15:13 Travel Screening - Travel/Exposure Within Last 30 Days Have you traveled within the last 30 days?: No Review of Systems Constitutional: Denies: Chills, Fever Past Medical History - SOCIAL HISTORY Smoking Status: Former smoker Alcohol Use: None Drug Use: None - RESPIRATORY Hx Respiratory Disorders: Yes Hx COPD: Yes Hx Dyspnea: Yes - CARDIOVASCULAR Hx Cardio Disorders: Yes Hx Hypertension: Yes - NEURO Hx Neuro Disorders: No Comment:: pt exhibits some neurological deficits - GI Hx GI Disorders: Yes Hx Ulcer: Yes - Hx Genitourinary Disorders: Yes Hx Bladder Problem: Yes Hx Prostate Problems: Yes Comment:: takes flomax - ENDOCRINE Hx Endocrine Disorders: No Hx Diabetes: No Hx Thyroid Disease: No - MUSCULOSKELETAL Hx Musculoskeletal Disorders: No Comment:: rt torn rotator cuff, current cyst on spine - PSYCH Hx Psych Problems: No - HEMATOLOGY/ONCOLOGY Hx Hematology/Oncology Disorders: No Family Medical History Any Significant Family History?: Yes Hx Cancer: Father, Mother Hx Diabetes: Mother Physical Exam - General General Appearance: Alert, Oriented x3, Cooperative, No acute distress - Head Head exam: Atraumatic, Normocephalic, Normal inspection - Eye Eye exam: Normal appearance, PERRL - Neck Neck exam: Normal inspection - Respiratory Respiratory exam: Normal lung sounds bilaterally. negative: Respiratory distress - Cardiovascular Cardiovascular Exam: Regular rate, Normal rhythm, Normal heart sounds - Extremities Extremities exam: negative: Normal inspection (There is a cast on the L lower leg that is quite wet. The patient's foot is visible and NVI. ) Course Vital Signs 09/23/17 09/23/17 23:21 23:23 Temperature 98.2 F 98.2 F Pulse Rate [ 78 Pulse Ox Probe] Respiratory 20 Rate Blood Pressure 147/63 [Left Arm] Pulse Ox 97 - Reevaluation(s) Reevaluation #1: I did discuss the case with the patient's surgeon Dr. Wiley and did offer to change his cast here in the ER. Dr. Wiley would like the patient transferred to the ER at [facility] for the cast tech to change the cast. I then did discuss the case with Dr. Parisi in the ER and he did accept the patient in transfer. 09/23/17 23:41 Disposition Disposition: Transfer Clinical Impression: Encounter for cast change Disposition: Acute Care Hospital Transfer Transfer To: [facility] Reason For Transfer: Orthopedics Accepting Physician: Isak Time Discussed w/Accepting Physician: 23:37 Condition: (2) Stable Forms: Patient Portal Access Time of Disposition: 23:37 Quality - Quality Measures Quality Measures: N/A - Blood Pressure Screening View Details: Yes Does Patient Have Any of the Following: No Blood Pressure Classification: Hypertensive Reading Systolic Measurement: 147 Diastolic Measurement: 63 Screening for High Blood Pressure: < First Hypertensive BP, F/U Documented > [ G8950] First Hypertensive Follow-up Interventions: Referral to alternative/primary care provider.
== END 2017-09-24 00:02 | disposition short-term general hospital (02) ==
LOC: ER 23:20
DX: Z48.01 Encounter for change or removal of surgical wound dressing (principal); I10 Essential (primary) hypertension
CPT/HCPCS: 99282

== ENCOUNTER 2018-02-01 16:04 | Emergency (ER) | payer MEDICARE, MEDICAID ==
--- NOTE | 2018-02-01 16:29 | Emergency Department Record ---
History of Present Illness - General Chief complaint: ENT Stated complaint: EARS PLUGGED Time Seen by Provider: 02/01/18 16:18 Source: Patient Mode of Arrival: Ambulatory Limitations: No limitations - History of Present Illness Initial comments: The patient is here due to feeling like his ears are plugged for 4-5 days. He denies any ear pain, runny nose, cough, or ST. complaint: Other Onset/Timin -: Days(s) Location: R ear, L ear Consistency: Constant Improves with: None Worsens with: None Associated Symptoms: Other - Related Data Previous Rx's Medication Instructions Recorded Loperamide HCl [Immodium] 2 mg PO Q4H #10 capsule 07/03/16 Neomycin/Polymyxin B Sulf/Hc 3 drop AFFEAR QID #10 ml 02/01/18 [Cortisporin Otic] Allergies Allergy/AdvReac Type Severity Reaction Status Date / Time morphine AdvReac Severe VOMITING Verified 09/13/17 15:13 Travel Screening - Travel/Exposure Within Last 30 Days Have you traveled within the last 30 days?: No - Travel/Exposure Within Last Year Have you traveled outside the [place] in the last year?: No - Additonal Travel Details Have you been exposed to anyone with a communicable illness?: No Review of Systems Constitutional: Denies: Chills, Fever Eyes: Denies: Eye discharge ENT: Denies: Congestion, Ear pain Respiratory: Denies: Cough, Dyspnea Past Medical History - SOCIAL HISTORY Smoking Status: Former smoker - RESPIRATORY Hx Respiratory Disorders: Yes Hx COPD: Yes Hx Dyspnea: Yes - CARDIOVASCULAR Hx Cardio Disorders: Yes Hx Hypertension: Yes - NEURO Hx Neuro Disorders: No Comment:: pt exhibits some neurological deficits - GI Hx GI Disorders: Yes Hx Ulcer: Yes - Hx Genitourinary Disorders: Yes Hx Bladder Problem: Yes Hx Prostate Problems: Yes Comment:: takes flomax - ENDOCRINE Hx Endocrine Disorders: No Hx Diabetes: No Hx Thyroid Disease: No - MUSCULOSKELETAL Hx Musculoskeletal Disorders: No Comment:: rt torn rotator cuff, current cyst on spine - PSYCH Hx Psych Problems: No - HEMATOLOGY/ONCOLOGY Hx Hematology/Oncology Disorders: No Family Medical History Any Significant Family History?: Yes Hx Cancer: Father, Mother Hx Diabetes: Mother Physical Exam - General General Appearance: Alert, Oriented x3, Cooperative, No acute distress - Head Head exam: Atraumatic, Normocephalic, Normal inspection - Eye Eye exam: Normal appearance, PERRL, EOMI - ENT ENT exam: negative: TM's normal bilaterally (There is bilateral cerumen occluding both canals with possible mild erythema of the canal wall.) Throat exam: Normal inspection. negative: Tonsillar erythema, Tonsillar exudate - Neck Neck exam: Normal inspection, Full ROM. negative: Tenderness - Respiratory Respiratory exam: Normal lung sounds bilaterally. negative: Respiratory distress - Cardiovascular Cardiovascular Exam: Regular rate, Normal rhythm, Normal heart sounds Course Vital Signs 02/01/18 16:09 Temperature 98.0 F Pulse Rate 68 Respiratory 16 Rate Blood Pressure 139/79 Pulse Ox 98 - Reevaluation(s) Reevaluation #1: I did discuss with the patient the need for ear drops for 3-4 days and then some debrox for a day prior to seeing his doctor or an UC for wax removal. 02/01/18 16:26 Disposition Disposition: Discharge Clinical Impression: Impacted cerumen of both ears Disposition: Home, Self-Care Condition: (2) Stable Instructions: Cerumen Impaction (ED) Additional Instructions: Please use the Cortisporin as directed and then for one day prior to your doctor appointment this week use Debrox to loosen up the wax. Please see your doctor or an urgent care this week for wax removal. Prescriptions: Neomycin/Polymyxin B Sulf/Hc [Cortisporin Otic] 3 drop AFFEAR QID #10 ml Forms: Patient Portal Access Time of Disposition: 16:29 Quality - Quality Measures Quality Measures: N/A - Blood Pressure Screening View Details: Yes Does Patient Have Any of the Following: No Blood Pressure Classification: Pre-Hypertensive BP Reading Systolic Measurement: 139 Diastolic Measurement: 79 Screening for High Blood Pressure: < Pre-Hypertensive BP, F/U Documented > [ G8950] Pre-Hypertensive Follow-up Interventions: Referral to alternative/primary care provider.
== END 2018-02-01 16:37 | disposition home or self-care (01) ==
LOC: ER 16:04
DX: H61.23 Impacted cerumen, bilateral (principal); I10 Essential (primary) hypertension; Z87.891 Personal history of nicotine dependence
CPT/HCPCS: 99282

== ENCOUNTER 2018-06-26 12:50 | Emergency (ER) | payer MEDICARE, MEDICAID ==
[2018-06-26] MEDS ORDERED: ALBUTEROL SULFATE (0.083%) 2.5 MG/3 ML NEB INH ONE (12:58)
--- NOTE | 2018-06-26 13:06 | Emergency Department Record ---
History of Present Illness - General Chief Complaint: Difficulty Breathing Stated Complaint: KEVIN Time Seen by Provider: 06/26/18 12:58 Source: Patient Mode of Arrival: Ambulatory Limitations: No limitations - History of Present Illness Initial Comments: Pt with one week of cough productive of "green" sputum. No blood in sputum. Pt is non smoker, no DM, no hx COPD. No fever or chills at home. Last night felt short of breath and "had to open the window to get air". Pt has been seen by family doctor and started on Augmenting 875mg BID. On day 5 of treatment without relief. No CXR done. Pt is normally active but states KEVIN limits his activity. No CP. Denies any pain at present. - Related Data Home Medications Medication Instructions Recorded Confirmed Last Taken Amoxicillin/Potassium Clav 1 tab PO BID 06/26/18 06/26/18 06/26/18 [Augmentin 875-125 Tablet] Previous Rx's Medication Instructions Recorded Loperamide HCl [Immodium] 2 mg PO Q4H #10 capsule 07/03/16 Neomycin/Polymyxin B Sulf/Hc 3 drop AFFEAR QID #10 ml 02/01/18 [Cortisporin Otic] Albuterol Sulfate [Albuterol 18 gm IH Q6HR 7 Days #1 hfa.aer.ad 06/26/18 Sulfate Hfa] Azithromycin [Zithromax] 250 mg PO DAILY 5 Days #6 tablet 06/26/18 Allergies Allergy/AdvReac Type Severity Reaction Status Date / Time morphine AdvReac Severe VOMITING Verified 06/26/18 13:05 Review of Systems Constitutional: Denies: Chills, Fever, Weakness Eyes: Denies: Eye discharge, Photophobia ENT: Denies: Congestion, Ear pain, Throat pain Respiratory: Reports: As per HPI, Cough. Denies: Hemoptysis, Wheezes Cardiovascular: Reports: Dyspnea on exertion. Denies: Arrhythmia, Chest pain, Edema, Palpitations, Syncope Endocrine: Reports: Fatigue. Denies: Polydipsia, Polyuria Gastrointestinal: Denies: Abdominal pain, Diarrhea, Nausea, Vomiting Genitourinary: Denies: Dysuria, Urgency Musculoskeletal: Denies: Back pain Skin: Denies: Bruising Neurological: Denies: Confusion, Headache, Tremors Psychiatric: Denies: Anxiety Hematological/Lymphatic: Denies: Anemia Past Medical History - SOCIAL HISTORY Smoking Status: Former smoker - RESPIRATORY Hx Respiratory Disorders: Yes Hx COPD: Yes Hx Dyspnea: Yes - CARDIOVASCULAR Hx Cardio Disorders: Yes Hx Hypertension: Yes - NEURO Hx Neuro Disorders: No Comment:: pt exhibits some neurological deficits - GI Hx GI Disorders: Yes Hx Ulcer: Yes - Hx Genitourinary Disorders: Yes Hx Bladder Problem: Yes Hx Prostate Problems: Yes Comment:: takes flomax - ENDOCRINE Hx Endocrine Disorders: No Hx Diabetes: No Hx Thyroid Disease: No - MUSCULOSKELETAL Hx Musculoskeletal Disorders: No Comment:: rt torn rotator cuff, current cyst on spine - PSYCH Hx Psych Problems: No - HEMATOLOGY/ONCOLOGY Hx Hematology/Oncology Disorders: No Family Medical History Hx Cancer: Father, Mother Hx Diabetes: Mother Physical Exam - General General Appearance: Alert, Oriented x3, Cooperative, Mild distress - Head Head exam: Atraumatic, Normal inspection - Eye Eye exam: Normal appearance, PERRL - ENT ENT exam: Mucous membranes moist, Normal external ear exam, Normal orophraynx, TM's normal bilaterally - Neck Neck exam: Normal inspection, Full ROM. negative: Lymphadenopathy - Respiratory Respiratory exam: Rhonchi (left base with crackles. No wheeze). negative: Accessory muscle use, Chest wall tenderness, Respiratory distress, Wheezes - Cardiovascular Cardiovascular Exam: Regular rate, Normal rhythm, Normal heart sounds. negative : Tachycardia Peripheral Pulses: 2+: Radial (R), Radial (L) - GI/Abdominal GI/Abdominal exam: Soft, Normal bowel sounds. negative: Distended, Guarding, Tenderness - Extremities Extremities exam: Normal inspection, Full ROM. negative: Pedal edema, Tenderness - Back Back exam: Reports: Normal inspection - Neurological Neurological exam: Alert, Normal gait, Oriented X3 - Psychiatric Psychiatric exam: Normal affect, Normal mood - Skin Skin exam: Normal color. negative: Cyanosis, Rash Course - Reevaluation(s) Reevaluation #1: 06/26/18 13:05 seen and exam. Rest tx with NMT. CXR and labs ordered. Reevaluation #2: 06/26/18 13:48 Improved subjectively with treatment NMT. Xray without infiltrate or failure. EKG unchanged and no CP. WBC normal and afebrile. We will continue Augmentin and add Zithromax and inhaler. Instructed with use of inhaler by RT. Home with follow up or Return as needed. Procedures - EKG Initial Date: 06/26/18 Time: 13:09 EKG: No Acute Changes (from prior 05-16-16 ), Unchanged From Previous (05/16/16) Medical Decision Making - Data Complexity MDM Data: Labs Ordered and/or Reviewed, X-Ray Ordered and/or Reviewed, EKG Ordered and/or Reviewed, Independent Visualization of Image, Tracing, or Specimen, Decision to Obtain Old Record - Lab Data Result diagrams: 06/26/18 12:55 06/26/18 12:55 - EKG Data -: EKG Interpreted by Me EKG: No Acute Changes, Unchanged From Previous - Radiology Data Radiology results: Report reviewed, Image reviewed -: Radiology Exam Interpreted by Myself Disposition Disposition: Discharge Clinical Impression: Bronchitis, Cough Disposition: Home, Self-Care Condition: (2) Stable Instructions: Acute Bronchitis (ED) Additional Instructions: Continue your Augmenting until gone! Adding Z Pack as directed. Use the inhaler 4 times a day. Rest and increase fluids. See your family doctor in 3 days. Return to the ED as needed or for any concern. Prescriptions: Albuterol Sulfate [Albuterol Sulfate Hfa] 18 gm IH Q6HR 7 Days #1 hfa.aer.ad Azithromycin [Zithromax] 250 mg PO DAILY 5 Days #6 tablet Forms: Patient Portal Access Quality - Quality Measures Quality Measures: N/A - Blood Pressure Screening Does Patient Have Any of the Following: No Blood Pressure Classification: Hypertensive Reading Systolic Measurement: 176 Diastolic Measurement: 96 Screening for High Blood Pressure: < Pre-Hypertensive BP, F/U Documented > [ [id number]] Pre-Hypertensive Follow-up Interventions: Follow-up with rescreen every year.
[2018-06-26 13:15] LABS: BASO % 0.8 % (0-6); EOS % 2.9 % (0-6); GRAN % 71.2 % (47-80); HEMATOCRIT 38.8 % (42.0-52.0); HEMOGLOBIN 12.9 gm/dl (14.0-18.0); LYMPH % 18.2 % (16-45); MEAN CELL VOLUME 84.9 fl (81-97); MEAN CORPUSCULAR HEMOGLOBIN 28.2 pg (27-33); MEAN CORPUSCULAR HGB CONC 33.2 g/dl (32-36); MEAN PLATELET VOLUME 10.2 fl (7.4-10.4); MONO % 6.9 % (0-9); PLATELET COUNT 257 K/uL (130-400); RED BLOOD COUNT 4.57 M/uL (4.40-5.70); RED CELL DISTRIBUTION WIDTH 14.6 % (11.5-14.5)
[2018-06-26 13:30] LABS: BLOOD UREA NITROGEN 20 mg/dL (8-23); CREATININE 0.7 mg/dL (0.7-1.2); EST GLOMERULAR FILTRATION RATE > 60 mL/min
[2018-06-26 13:33] LABS: GLUCOSE,RANDOM 155 mg/dL (74-109)
--- NOTE | 2018-06-29 09:36 | RADIOLOGY REPORT ---
EXAM: CHEST, TWO VIEWS HISTORY: COUGH AND CONGESTION FOR TWO WEEKS. DIFFICULTY IN BREATHING THIS MORNING. COPD HISTORY. TECHNIQUE: Upright PA and lateral views of the chest were obtained. Comparison: Two view chest radiographic examination dated 05/16/16. FINDINGS: The heart is not enlarged and the pulmonary vasculature is nondilated. The thoracic aorta is mildly tortuous and atherosclerotic. A calcified lymph node in the AP window of the mediastinum is possible consistent with healed granulomatous disease. Mild biapical pleural and parenchymal scarring is redemonstrated. No new lung consolidation, costophrenic angle blunting or pneumothorax. The lungs appear mildly hyperinflated. Surgical anchors are noted within the proximal left humerus. There are mild degenerative changes of the visualized spine and shoulder girdles. IMPRESSION: NO RADIOGRAPHIC EVIDENCE OF ACUTE CARDIOPULMONARY DISEASE WITHOUT SUSPICIOUS CHANGE SINCE 05/16/16. JOB NUMBER: [id number] MTDD
== END 2018-06-26 14:12 | disposition home or self-care (01) ==
LOC: ER 12:50
DX: J20.9 Acute bronchitis, unspecified (principal); I10 Essential (primary) hypertension; R44.9 Unspecified symptoms and signs involving general sensations and perceptions; Z87.891 Personal history of nicotine dependence
CPT/HCPCS: 71046; 80048; 80320; 84484; 85025; 93005; 93010; 94640; 94664; 99284; J7613